=== PATIENT | female | born 2000 | race African-American/Black ===

== ENCOUNTER 2023-10-27 23:05 | Emergency (ER) | payer OTHER ==
[~2023-10-27] VITALS: Ht 170.2 cm; Wt 90.3 kg
[2023-10-27 23:14] VITALS: BP 120/85; PULSE 85; RESP 16; TEMP 97.7; O2SAT 100
[2023-10-27] MEDS: ACETAMINOPHEN EXTRA STRENGTH 500 MG TAB PO ONE (23:46)
== END 2023-10-28 00:50 | disposition home or self-care (01) ==
LOC: MED 23:05
DX: M23.91 Unspecified internal derangement of right knee (principal); R03.0 Elevated blood-pressure reading, without diagnosis of hypertension
CPT/HCPCS: 73562; 99283